=== PATIENT | male | born 1985 | race African-American/Black ===

== ENCOUNTER 2016-12-08 10:41 | Emergency (ER) | payer OTHER | END 2016-12-08 12:42 | disposition home or self-care (01) | LOC: ER 10:41 | DX: J45.901 Unspecified asthma with (acute) exacerbation (principal); G43.909 Migraine, unspecified, not intractable, without status migrainosus; F10.99 Alcohol use, unspecified with unspecified alcohol-induced disorder ==

== ENCOUNTER 2017-07-26 19:15 | Emergency (ER) | payer OTHER ==
[~2017-07-26] VITALS: Ht 182.9 cm; Wt 81.7 kg
[~2017-07-26 19:15] MED LIST: GENVOYA TABLET1 EACH PO; IBUPROFEN 800800 M1 PO; NORCO 5-325 TA1 EACH PO; PREDNISONE 20 M20 MG PO; VENTOLIN HFA 1818 GM INH; ZOFRAN ODT4 MG PO; ZPAK PO
[2017-07-26 21:29] VITALS: BP 103/57
== END 2017-07-26 21:30 | disposition home or self-care (01) ==
LOC: ER 19:15
DX: S46.912A Strain of unspecified muscle, fascia and tendon at shoulder and upper arm level, left arm, initial encounter (principal); G43.909 Migraine, unspecified, not intractable, without status migrainosus; W19.XXXA Unspecified fall, initial encounter; Y93.89 Activity, other specified; Y92.89 Other specified places as the place of occurrence of the external cause; Y99.8 Other external cause status

== ENCOUNTER 2018-05-22 01:47 | Emergency (ER) | payer OTHER ==
[~2018-05-22] VITALS: Ht 182.9 cm; Wt 86.2 kg
[2018-05-22 02:35] LABS: ABSOLUTE NEUTROPHILS 4.9 thou/uL (1.4-8.2); BASOPHILS 0.5 % (0.0-2.0); EOSINOPHILS 2.5 % (0.0-3.0); HEMATOCRIT 47.1 % (42.0-52.0); HEMOGLOBIN 15.8 gm/dL (14.0-18.0); LYMPHOCYTES 28.9 % (24.0-44.0); MCH 29.4 pg (26.0-34.0); MCHC 33.5 g/dL (28.0-37.0); MCV 87.6 fL (80.0-100.0); PLATELET COUNT 296 thou/uL (150-400); POLYS 59.1 % (36.0-66.0); RBC 5.38 mil/uL (4.50-6.00); RDW 13.3 % (10.5-14.5); WBC 8.3 thou/uL (4.0-11.0)
[2018-05-22 02:41] LABS: CALCIUM 8.7 mg/dL (8.5-10.1); CREATININE 0.9 mg/dL (0.7-1.3); POTASSIUM 3.5 mmol/L (3.5-5.1)
[2018-05-22] MEDS ORDERED: REGLAN 10 MG TA10 MG PO (02:41)
[2018-05-22] MEDS ORDERED: NAPROSYN500 MG PO (02:41)
[2018-05-22 02:47] LABS: ALBUMIN 3.9 g/dL (3.4-5.0); TOTAL BILIRUBIN 0.3 mg/dL (<0.1-1.0); TOTAL PROTEIN 7.6 g/dL (6.4-8.2)
[2018-05-22 03:27] VITALS: BP 100/67
== END 2018-05-22 03:28 | disposition home or self-care (01) ==
LOC: ER 01:47
PROVIDERS: Emergency Medicine
DX: G43.909 Migraine, unspecified, not intractable, without status migrainosus (principal); F17.210 Nicotine dependence, cigarettes, uncomplicated

== ENCOUNTER 2018-12-07 19:06 | Emergency (ER) | payer OTHER ==
[~2018-12-07] VITALS: Ht 182.9 cm; Wt 93.0 kg
[~2018-12-07 19:06] MED LIST changes: +NAPROSYN500 MG PO; +REGLAN 10 MG TA10 MG PO
[2018-12-07 19:21] LABS: URINE BILIRUBIN NEGATIVE (Negative); URINE BLOOD TRACE (Negative); URINE CLARITY CLEAR; URINE COLOR YELLOW; URINE GLUCOSE-RANDOM* NEGATIVE (Negative); URINE KETONES NEGATIVE (Negative); URINE LEUKOCYTES-REFLEX NEGATIVE (Negative); URINE NITRITE-REFLEX NEGATIVE (Negative); URINE PROTEIN (DIPSTICK) NEGATIVE (Negative); URINE SPECIFIC GRAVITY 1.025 (1.005-1.035); URINE UROBILINOGEN 0.2 E.U./dl (0.2-1.0)
[2018-12-07 19:43] LABS: ABSOLUTE NEUTROPHILS 7.9 thou/uL (1.4-8.2); BASOPHILS 0.4 % (0.0-2.0); HEMATOCRIT 44.7 % (42.0-52.0); HEMOGLOBIN 15.3 gm/dL (14.0-18.0); LYMPHOCYTES 19.7 % (24.0-44.0); MCH 30.3 pg (26.0-34.0); MCHC 34.1 g/dL (28.0-37.0); MCV 88.7 fL (80.0-100.0); MONOCYTES 9.3 % (1.0-8.0); PLATELET COUNT 318 thou/uL (150-400); POLYS 69.6 % (36.0-66.0); RBC 5.04 mil/uL (4.50-6.00); RDW 13.9 % (10.5-14.5); WBC 11.4 thou/uL (4.0-11.0)
[2018-12-07 19:50] LABS: CALCIUM 9.1 mg/dL (8.5-10.1); POTASSIUM 3.9 mmol/L (3.5-5.1)
[2018-12-07 19:57] LABS: ALBUMIN 4.1 g/dL (3.4-5.0); TOTAL BILIRUBIN 0.3 mg/dL (<0.1-1.0); TOTAL PROTEIN 7.6 g/dL (6.4-8.2)
[2018-12-07 21:08] LABS: AMP/METHAMP Negative (Negative); BARBITURATES Negative (Negative); BENZODIAZEPINES Negative (Negative); COCAINE POSITIVE (Negative); METHADONE Negative (Negative); OPIATES Negative (Negative); PCP Negative (Negative)
[2018-12-07] MEDS ORDERED: CIPRO500 MG PO (21:29)
[2018-12-07] MEDS ORDERED: PROBIOTIC1 EAC1 PO (21:29)
[2018-12-07 21:42] VITALS: BP 129/63
== END 2018-12-07 21:44 | disposition home or self-care (01) ==
LOC: ER 19:06
PROVIDERS: Nurse Practitioner Family
DX: R11.2 Nausea with vomiting, unspecified (principal); R19.7 Diarrhea, unspecified; R82.5 Elevated urine levels of drugs, medicaments and biological substances; F17.210 Nicotine dependence, cigarettes, uncomplicated; G43.909 Migraine, unspecified, not intractable, without status migrainosus

== ENCOUNTER 2019-06-01 06:37 | Emergency (ER) | payer OTHER ==
[~2019-06-01] VITALS: Ht 182.9 cm; Wt 88.5 kg
[~2019-06-01 06:37] MED LIST changes: +CIPRO500 MG PO; +PROBIOTIC1 EAC1 PO
[2019-06-01] MEDS ORDERED: PROAIR HFA8.5 GM INH (07:18)
[2019-06-01 07:21] LABS: ABSOLUTE NEUTROPHILS 11.3 thou/uL (1.4-8.2); BASOPHILS 0.3 % (0.0-2.0); EOSINOPHILS 1.4 % (0.0-3.0); HEMATOCRIT 54.1 % (42.0-52.0); HEMOGLOBIN 17.5 gm/dL (14.0-18.0); LYMPHOCYTES 11.7 % (24.0-44.0); MCH 29.9 pg (26.0-34.0); MCHC 32.3 g/dL (28.0-37.0); MCV 92.5 fL (80.0-100.0); MONOCYTES 6.8 % (1.0-8.0); POLYS 79.8 % (36.0-66.0); RBC 5.85 mil/uL (4.50-6.00); RDW 14.3 % (10.5-14.5); WBC 14.2 thou/uL (4.0-11.0)
[2019-06-01 07:31] LABS: CALCIUM 9.4 mg/dL (8.5-10.1); CREATININE 1.1 mg/dL (0.7-1.3); POTASSIUM 4.3 mmol/L (3.5-5.1)
[2019-06-01 07:37] LABS: ALBUMIN 4.8 g/dL (3.4-5.0); TOTAL BILIRUBIN 1.1 mg/dL (<0.1-1.0); TOTAL PROTEIN 8.9 g/dL (6.4-8.2)
[2019-06-01 08:45] LABS: PLATELET COUNT 254 thou/uL (150-400)
[2019-06-01] MEDS ORDERED: ZOFRAN ODT4 MG PO (09:11)
[2019-06-01 09:22] VITALS: BP 108/65
== END 2019-06-01 09:23 | disposition home or self-care (01) ==
LOC: ER 06:37
PROVIDERS: Emergency Medicine
DX: R11.2 Nausea with vomiting, unspecified (principal); R19.7 Diarrhea, unspecified; G43.909 Migraine, unspecified, not intractable, without status migrainosus; F17.210 Nicotine dependence, cigarettes, uncomplicated

== ENCOUNTER 2019-09-14 00:52 | Emergency (ER) | payer OTHER ==
[~2019-09-14] VITALS: Ht 182.9 cm; Wt 83.0 kg
[~2019-09-14 00:52] MED LIST changes: +PROAIR HFA8.5 GM INH
[2019-09-14] MEDS ORDERED: GENVOYA TABLET1 EACH PO (01:12)
[2019-09-14 01:39] LABS: BASOPHILS 0.4 % (0.0-2.0); EOSINOPHILS 3.2 % (0.0-3.0); HEMATOCRIT 44.5 % (42.0-52.0); HEMOGLOBIN 15.1 gm/dL (14.0-18.0); LYMPHOCYTES 28.3 % (24.0-44.0); MCH 30.5 pg (26.0-34.0); MCHC 33.8 g/dL (28.0-37.0); PLATELET COUNT 274 thou/uL (150-400); POLYS 56.1 % (36.0-66.0); RBC 4.94 mil/uL (4.50-6.00); RDW 13.7 % (10.5-14.5); WBC 8.9 thou/uL (4.0-11.0)
[2019-09-14 02:02] LABS: ANION GAP 5 mmol/L (7-16); BUN 12 mg/dL (7-18); CALCIUM 8.6 mg/dL (8.5-10.1); CHLORIDE 102 mmol/L (98-107); CO2 30 mmol/L (21-32); CREATININE 1.1 mg/dL (0.7-1.3); GLUCOSE 95 mg/dL (74-106); SODIUM 137 mmol/L (136-145)
[2019-09-14 02:11] LABS: ALBUMIN 3.8 g/dL (3.4-5.0); SGOT 17 U/L (15-37); SGPT 24 U/L (30-65); TOTAL BILIRUBIN 0.4 mg/dL (0.2-1.0); TOTAL PROTEIN 7.4 g/dL (6.4-8.2); TROPONIN-I <0.06 ng/mL (<0.06)
[2019-09-14] MEDS ORDERED: PREDNISONE 20 M20 MG PO (04:23)
[2019-09-14] MEDS ORDERED: PROAIR HFA8.5 GM INH (04:23)
[2019-09-14 04:41] VITALS: BP 104/60
--- NOTE | 2019-09-14 08:54 | EKG ---
[facility] [place] [address] ELECTROCARDIOGRAM REPORT Name: MIS RUSSELL Room #: DEP [facility].Jerrod#: [id number] Admission: 09/14/19 Attend Phys: Discharge: 09/14/19 Date of : 87 Report #: [id number] THIS REPORT FOR: cc: NO FAMILY PHYSICIAN or PCP NO FAMILY PHYSICIAN or PCP Liam Hinojosa MD [facility] ~ THIS REPORT FOR: //name// [facility] ED Test Date: 2019-09-14 Test Time: 01:37:19 Pat Name: MIS RUSSELL Department: Room: Gender: Director Microbiology: [place] [id number] : 1985 Requested By: Kristel Goncalves Order Number: [id number] MD: Liam Hinojosa Measurements Intervals [place] Rate: 94 P: 67 ME: 174 QRS: 242 QRSD: 93 T: 20 QT: 343 QTc: 429 Interpretive Statements Sinus rhythm Rightward axis ST elev, probable normal early repol pattern No previous ECG available for comparison Electronically Signed On 09-14-2019 8:52:46 CDT by Liam Hinojosa [email or web address] <ELECTRONICALLY SIGNED> By: Liam Hinojosa MD, [facility] 09/14/19 0852 6 Liam Hinojosa MD, [facility] /EPI
== END 2019-09-14 04:42 | disposition home or self-care (01) ==
LOC: ER 00:52
PROVIDERS: Student in an Organized Health Care Education/Training Program
DX: J45.901 Unspecified asthma with (acute) exacerbation (principal); G43.909 Migraine, unspecified, not intractable, without status migrainosus; F17.210 Nicotine dependence, cigarettes, uncomplicated